=== PATIENT | female | born 1965 | race African-American/Black ===

== ENCOUNTER 2017-09-08 23:41 | Emergency (ER) | payer OTHER ==
[~2017-09-08] VITALS: Ht 162.6 cm; Wt 72.6 kg
[2017-09-09 00:13] VITALS: BP 127/72
[2017-09-09] MEDS ORDERED: THIAMINE HCL 100 MG TAB PO ONE (01:30)
== END 2017-09-09 02:52 | disposition home or self-care (01) ==
LOC: EDBD 23:41 → ER 23:44
DX: S16.1XXA Strain of muscle, fascia and tendon at neck level, initial encounter (principal); M62.838 Other muscle spasm; F41.9 Anxiety disorder, unspecified; G92 Toxic encephalopathy; F10.129 Alcohol abuse with intoxication, unspecified; F17.210 Nicotine dependence, cigarettes, uncomplicated
CPT/HCPCS: 72125